=== PATIENT | male | born 1980 | race African-American/Black ===

== ENCOUNTER 2017-10-01 22:36 | Emergency (ER) | payer OTHER ==
[~2017-10-01] VITALS: Ht 172.7 cm; Wt 111.3 kg
[2017-10-01 23:40] LABS: HEMATOCRIT 41.6 % (38.0-50.0); HEMOGLOBIN 13.3 G/DL (12.5-16.6); MCH 25.2 PG (29.0-34.0); MCV 78.8 FL (86-99); PLATELET COUNT 259 K/uL (156-360); RBC DIS.WIDTH-CV 14.7 % (11.8-14.6); RBC DIS.WIDTH-SD 42.4 % (39-53); RED BLOOD COUNT 5.28 M/uL (4.00-5.50); WHITE BLOOD COUNT 10.4 K/uL (4.1-10.2)
[2017-10-01 23:54] LABS: CHLORIDE 106 mEq/L (99-109); POTASSIUM 3.6 mEq/L (3.7-5.4); SODIUM 140 mEq/L (136-147)
[2017-10-01 23:56] LABS: GLUCOSE 104 mg/dL (70-99)
[2017-10-01 23:59] LABS: SERUM ETHYL ALCOHOL < 10 mg/dL
[2017-10-02] LABS: CREATININE 0.8 mg/dL (0.6-1.3); GFR ESTIMATE (CALCULATED) > 59 mL/min/ (58.99-99999)
[2017-10-02 00:01] LABS: UREA NITROGEN (BUN) 4 mg/dL (9-23)
[2017-10-02 00:08] LABS: TROP-I INTERPRETATION NEGATIVE; TROPONIN-I < 0.01 ng/mL (0.0-0.30)
[2017-10-02 00:14] LABS: APPEARANCE CLEAR ((CLEAR)); BILIRUBIN NEGATIVE; BLOOD NEGATIVE; COLOR COLORLESS ((YELLOW)); GLUCOSE (STRIP) NEGATIVE; KETONES NEGATIVE; LEUKOCYTES NEGATIVE; NITRITE NEGATIVE; PROTEIN (STRIP) NEGATIVE; SPECIFIC GRAVITY 1.003 (1.000-1.030); UCUL ADDED? NO; UROBILINOGEN 0.2 MG/DL (0.2-1.0)
[2017-10-02 00:46] LABS: AMPHETAMINE NEGATIVE (500 ng/mL); BARBITURATES NEGATIVE (200 ng/mL); BENZODIAZEPINES NEGATIVE (150 ng/mL); BUPRENORPHINE NEGATIVE (10 ng/mL); COCAINE NEGATIVE (150 ng/mL); METHADONE NEGATIVE (200 ng/mL); METHAMPHETAMINE NEGATIVE (500 ng/mL); OPIATES (MORPHINE) NEGATIVE (100 ng/mL); OXYCODONE NEGATIVE (100 ng/mL); PHENCYCLIDINE NEGATIVE (25 ng/mL); PROPOXYPHENE NEGATIVE (300 ng/mL); THC CANNABINOIDS NEGATIVE (50 ng/mL); TRICYCLIC ANTIDEPRESSANTS PRESUMPTIVE POSITIVE (300 ng/mL)
[2017-10-02 03:00] VITALS: BP 130/84
== END 2017-10-02 03:00 | disposition home or self-care (01) ==
LOC: EME 22:36
PROVIDERS: Emergency Medicine
DX: F20.9 Schizophrenia, unspecified (principal); R44.0 Auditory hallucinations; R44.1 Visual hallucinations; F31.9 Bipolar disorder, unspecified; F17.200 Nicotine dependence, unspecified, uncomplicated
CPT/HCPCS: 80048; 81003; 84484; 85027; 90839; 93005; 99281; 99285; G0480

== ENCOUNTER 2017-11-18 22:11 | Inpatient (IN) | payer OTHER ==
[~2017-11-18] VITALS: Ht 172.7 cm; Wt 113.1 kg
[2017-11-18 23:29] LABS: AMPHETAMINE NEGATIVE (500 ng/mL); BARBITURATES NEGATIVE (200 ng/mL); BENZODIAZEPINES NEGATIVE (150 ng/mL); BUPRENORPHINE NEGATIVE (10 ng/mL); COCAINE NEGATIVE (150 ng/mL); METHADONE NEGATIVE (200 ng/mL); METHAMPHETAMINE NEGATIVE (500 ng/mL); OPIATES (MORPHINE) NEGATIVE (100 ng/mL); OXYCODONE NEGATIVE (100 ng/mL); PHENCYCLIDINE NEGATIVE (25 ng/mL); PROPOXYPHENE NEGATIVE (300 ng/mL); THC CANNABINOIDS NEGATIVE (50 ng/mL); TRICYCLIC ANTIDEPRESSANTS PRESUMPTIVE POSITIVE (300 ng/mL)
[2017-11-18 23:55] LABS: HEMOGLOBIN 13.9 G/DL (12.5-16.6); MCH 25.3 PG (29.0-34.0); MCHC 32.3 G/DL (30.0-36.0); MCV 78.3 FL (86-99); PLATELET COUNT 245 K/uL (156-360); RBC DIS.WIDTH-SD 42.7 % (39-53); RED BLOOD COUNT 5.49 M/uL (4.00-5.50); WHITE BLOOD COUNT 12.3 K/uL (4.1-10.2)
[2017-11-19 00:02] LABS: ALBUMIN 4.5 g/dL (3.2-4.8); CHLORIDE 103 mEq/L (99-109); POTASSIUM 3.7 mEq/L (3.7-5.4); SODIUM 139 mEq/L (136-147)
[2017-11-19 00:05] LABS: GLUCOSE 102 mg/dL (70-99)
[2017-11-19 00:07] LABS: TOTAL BILIRUBIN 0.3 mg/dL (0.0-1.0)
[2017-11-19 00:08] LABS: ALKALINE PHOSPHATASE 76 IU/L (3-129); CREATININE 0.9 mg/dL (0.6-1.3); GFR ESTIMATE (CALCULATED) > 59 mL/min/ (58.99-99999); SERUM ETHYL ALCOHOL < 10 mg/dL
[2017-11-19 00:10] LABS: AST (GOT) 29 IU/L (2-34); UREA NITROGEN (BUN) 5 mg/dL (9-23)
[2017-11-19 00:11] LABS: ALT (GPT) 43 IU/L (3-49)
[2017-11-19 01:18] VITALS: BP 134/90
[2017-11-19] MEDS ORDERED: CLOZAPINE200 MG PO ×2 (01:42→01:44)
[2017-11-19] MEDS ORDERED: LITHIUM CARBON600 MG PO (01:46)
[2017-11-19] MEDS ORDERED: LITHIUM CARBON300 MG PO (01:47)
[2017-11-19] MEDS ORDERED: ATIVAN0.5 MG PO (01:48)
[2017-11-19] MEDS ORDERED: SEROQUEL400 MG PO (01:49)
[2017-11-19] MEDS ORDERED: FISH OIL 1,0001 EAC7 PO (06:16)
[2017-11-19] MEDS ORDERED: COLACE100 MG PO (06:16)
[2017-11-19] MEDS ORDERED: FLONASE16 G1 BOTH NARES (06:17)
[2017-11-19] MEDS ORDERED: CLARITIN,ALAVAR10 MG PO (06:18)
[2017-11-19] MEDS ORDERED: THERAGRAN1 TABLET PO (06:19)
[2017-11-19] MEDS ORDERED: MIRALAX17 GM PO (06:20)
[2017-11-19] MEDS ORDERED: PRILOSEC20 MG PO (06:20)
[2017-11-19] MEDS ORDERED: VENTOLIN HFA18 GM IH (06:21)
[2017-11-19 07:35] VITALS: BP 118/88
[2017-11-19 08:54] LABS: BASOPHIL (%) 0.5 % (0-1); BASOPHIL COUNT 0.1 K/uL (0-0.1); EOSINOPHIL (%) 0 % (0-5); HEMATOCRIT 48.1 % (38.0-50.0); IMMATURE GRANULOCYTE (%) 0.5 % (0.0-0.7); LYMPHOCYTE (%) 27.8 % (15-42); LYMPHOCYTE COUNT 2.8 K/uL (1.0-2.8); MCH 24.7 PG (29.0-34.0); MCHC 31.2 G/DL (30.0-36.0); MCV 79.1 FL (86-99); MONOCYTE (%) 7.4 % (3-12); MONOCYTE COUNT 0.8 K/uL (0-0.8); NEUTROPHIL (%) 63.8 % (45-76); NEUTROPHIL COUNT 6.4 K/uL (1.8-6.4); PLATELET COUNT 313 K/uL (156-360); RBC DIS.WIDTH-CV 15.4 % (11.8-14.6); RBC DIS.WIDTH-SD 43.2 % (39-53); RED BLOOD COUNT 6.08 M/uL (4.00-5.50); WHITE BLOOD COUNT 10.1 K/uL (4.1-10.2)
[2017-11-19 16:11] VITALS: BP 127/70
[2017-11-20 07:43] VITALS: BP 107/66
[2017-11-20 16:30] VITALS: BP 155/85
[2017-11-21 08:02] VITALS: BP 128/81
[2017-11-21] MEDS ORDERED: NICOTINE PATCH1 EAC1 TD (09:23)
== END 2017-11-21 10:45 | disposition home or self-care (01) | DRG 885 ==
LOC: EME 22:11 → 1WEST 11-19 00:30 → EDOF 11-19 00:30 → ENRESERV 11-19 00:58 → 1WEST 11-19 01:11
PROVIDERS: Emergency Medicine; Psychiatry & Neurology Psychiatry
DX: F20.9 Schizophrenia, unspecified (principal); J45.909 Unspecified asthma, uncomplicated; F17.200 Nicotine dependence, unspecified, uncomplicated; E66.9 Obesity, unspecified; Z68.37 Body mass index [BMI] 37.0-37.9, adult
CPT/HCPCS: 80053; 80178; 85025; 85027; 90839; 99202; 99281; 99285; G0480

== ENCOUNTER 2017-11-25 22:29 | Emergency (ER) | payer OTHER ==
[~2017-11-25] VITALS: Ht 172.7 cm; Wt 114.2 kg
[~2017-11-25 22:29] MED LIST: ATIVAN0.5 MG PO; CLARITIN,ALAVAR10 MG PO; CLOZAPINE200 MG PO; COLACE100 MG PO; FISH OIL 1,0001 EAC7 PO; FLONASE16 G1 BOTH NARES; LITHIUM CARBON300 MG PO; LITHIUM CARBON600 MG PO; MIRALAX17 GM PO; NICOTINE PATCH1 EAC1 TD; PRILOSEC20 MG PO; SEROQUEL400 MG PO; THERAGRAN1 TABLET PO; VENTOLIN HFA18 GM IH
[2017-11-26 01:47] LABS: BASOPHIL (%) 0.5 % (0-1); BASOPHIL COUNT 0.1 K/uL (0-0.1); EOSINOPHIL (%) 0.1 % (0-5); HEMATOCRIT 41.1 % (38.0-50.0); HEMOGLOBIN 13.1 G/DL (12.5-16.6); IMMATURE GRANULOCYTE (%) 0.7 % (0.0-0.7); LYMPHOCYTE (%) 38.4 % (15-42); LYMPHOCYTE COUNT 4.2 K/uL (1.0-2.8); MCHC 31.9 G/DL (30.0-36.0); MCV 78.6 FL (86-99); MONOCYTE (%) 9.1 % (3-12); NEUTROPHIL (%) 51.2 % (45-76); NEUTROPHIL COUNT 5.6 K/uL (1.8-6.4); PLATELET COUNT 259 K/uL (156-360); RBC DIS.WIDTH-CV 15.2 % (11.8-14.6); RBC DIS.WIDTH-SD 43.2 % (39-53); RED BLOOD COUNT 5.23 M/uL (4.00-5.50)
[2017-11-26 01:56] LABS: ALBUMIN 4.2 g/dL (3.2-4.8); CHLORIDE 106 mEq/L (99-109); POTASSIUM 3.5 mEq/L (3.7-5.4); SODIUM 137 mEq/L (136-147)
[2017-11-26 01:59] LABS: GLUCOSE 158 mg/dL (70-99); TOTAL PROTEIN 7.5 g/dL (6.4-8.3)
[2017-11-26 02:01] LABS: TOTAL BILIRUBIN 0.3 mg/dL (0.0-1.0)
[2017-11-26 02:02] LABS: ALKALINE PHOSPHATASE 76 IU/L (3-129); SERUM ETHYL ALCOHOL < 10 mg/dL
[2017-11-26 02:03] LABS: GFR ESTIMATE (CALCULATED) > 59 mL/min/ (58.99-99999)
[2017-11-26 02:04] LABS: AST (GOT) 27 IU/L (2-34); UREA NITROGEN (BUN) 4 mg/dL (9-23)
[2017-11-26 02:05] LABS: ALT (GPT) 43 IU/L (3-49)
[2017-11-26 02:11] LABS: AMPHETAMINE NEGATIVE (500 ng/mL); BARBITURATES NEGATIVE (200 ng/mL); BENZODIAZEPINES NEGATIVE (150 ng/mL); BUPRENORPHINE NEGATIVE (10 ng/mL); COCAINE NEGATIVE (150 ng/mL); METHADONE NEGATIVE (200 ng/mL); METHAMPHETAMINE NEGATIVE (500 ng/mL); OPIATES (MORPHINE) NEGATIVE (100 ng/mL); OXYCODONE NEGATIVE (100 ng/mL); PHENCYCLIDINE NEGATIVE (25 ng/mL); PROPOXYPHENE NEGATIVE (300 ng/mL); THC CANNABINOIDS NEGATIVE (50 ng/mL); TRICYCLIC ANTIDEPRESSANTS PRESUMPTIVE POSITIVE (300 ng/mL)
[2017-11-26 03:16] VITALS: BP 135/104
== END 2017-11-26 03:16 | disposition home or self-care (01) ==
LOC: EME 22:29
PROVIDERS: Emergency Medicine
DX: F20.9 Schizophrenia, unspecified (principal); F17.200 Nicotine dependence, unspecified, uncomplicated; F32.9 Major depressive disorder, single episode, unspecified; Z87.19 Personal history of other diseases of the digestive system
CPT/HCPCS: 80053; 80178; 85025; 90839; 99281; 99283; G0480

== ENCOUNTER 2018-01-29 21:04 | Inpatient (IN) | payer OTHER ==
[~2018-01-29] VITALS: Ht 172.7 cm; Wt 116.9 kg
[2018-01-29 23:04] LABS: HEMATOCRIT 41.4 % (38.0-50.0); MCH 24.3 PG (29.0-34.0); MCHC 31.4 G/DL (30.0-36.0); MCV 77.5 FL (86-99); PLATELET COUNT 257 K/uL (156-360); RBC DIS.WIDTH-CV 15.9 % (11.8-14.6); RBC DIS.WIDTH-SD 44.8 % (39-53); RED BLOOD COUNT 5.34 M/uL (4.00-5.50); WHITE BLOOD COUNT 10.1 K/uL (4.1-10.2)
[2018-01-29 23:19] LABS: CHLORIDE 108 mEq/L (99-109); POTASSIUM 3.7 mEq/L (3.7-5.4); SODIUM 140 mEq/L (136-147)
[2018-01-29 23:21] LABS: GLUCOSE 101 mg/dL (70-99)
[2018-01-29 23:24] LABS: SERUM ETHYL ALCOHOL < 10 mg/dL
[2018-01-29 23:25] LABS: CREATININE 0.9 mg/dL (0.6-1.3); GFR ESTIMATE (CALCULATED) > 59 mL/min/ (58.99-99999)
[2018-01-29 23:26] LABS: UREA NITROGEN (BUN) 4 mg/dL (9-23)
[2018-01-30 00:18] LABS: APPEARANCE CLEAR ((CLEAR)); BILIRUBIN NEGATIVE; BLOOD NEGATIVE; COLOR COLORLESS ((YELLOW)); GLUCOSE (STRIP) NEGATIVE; KETONES NEGATIVE; LEUKOCYTES NEGATIVE; NITRITE NEGATIVE; PROTEIN (STRIP) NEGATIVE; SPECIFIC GRAVITY 1.002 (1.000-1.030); UCUL ADDED? NO; UROBILINOGEN 0.2 MG/DL (0.2-1.0)
[2018-01-30 00:27] LABS: AMPHETAMINE NEGATIVE (500 ng/mL); BARBITURATES NEGATIVE (200 ng/mL); BENZODIAZEPINES PRESUMPTIVE POSITIVE (150 ng/mL); BUPRENORPHINE NEGATIVE (10 ng/mL); COCAINE NEGATIVE (150 ng/mL); METHADONE NEGATIVE (200 ng/mL); METHAMPHETAMINE NEGATIVE (500 ng/mL); OPIATES (MORPHINE) NEGATIVE (100 ng/mL); OXYCODONE NEGATIVE (100 ng/mL); PHENCYCLIDINE NEGATIVE (25 ng/mL); PROPOXYPHENE NEGATIVE (300 ng/mL); THC CANNABINOIDS NEGATIVE (50 ng/mL); TRICYCLIC ANTIDEPRESSANTS PRESUMPTIVE POSITIVE (300 ng/mL)
[2018-01-30 01:14] VITALS: BP 140/94
[2018-01-30 04:29] LABS: BENZODIAZEPINES, URINE SCREEN Negative (200 ng/mL)
[2018-01-30 07:30] VITALS: BP 103/72
[2018-01-30 10:17] LABS: BASOPHIL (%) 0.4 % (0-1); EOSINOPHIL (%) 0.1 % (0-5); IMMATURE GRANULOCYTE (%) 0.6 % (0.0-0.7); LYMPHOCYTE (%) 32.7 % (15-42); LYMPHOCYTE COUNT 2.9 K/uL (1.0-2.8); MCH 24.1 PG (29.0-34.0); MCHC 30.4 G/DL (30.0-36.0); MONOCYTE (%) 9.7 % (3-12); MONOCYTE COUNT 0.9 K/uL (0-0.8); NEUTROPHIL (%) 56.5 % (45-76); NEUTROPHIL COUNT 5.1 K/uL (1.8-6.4); PLATELET COUNT 281 K/uL (156-360); RBC DIS.WIDTH-CV 16.1 % (11.8-14.6); RBC DIS.WIDTH-SD 45.8 % (39-53); RED BLOOD COUNT 5.82 M/uL (4.00-5.50); WHITE BLOOD COUNT 8.9 K/uL (4.1-10.2)
[2018-01-30 15:54] VITALS: BP 127/88
[2018-01-31] MEDS ORDERED: QUETIAPINE FUM300 MG PO (08:46)
== END 2018-01-31 13:53 | disposition home or self-care (01) | DRG 885 ==
LOC: EME 21:04 → EDOF 01-30 00:02 → ENRESERV 01-30 01:00 → 1WEST 01-30 01:05
PROVIDERS: Emergency Medicine; Psychiatry & Neurology Psychiatry
DX: F25.0 Schizoaffective disorder, bipolar type (principal); F17.200 Nicotine dependence, unspecified, uncomplicated; R05 Cough; E66.3 Overweight; Z68.39 Body mass index [BMI] 39.0-39.9, adult
CPT/HCPCS: 80048; 81003; 84999; 85025; 85027; 90839; 97150 GO; 97165 GO; 99281; 99285; G0480